=== PATIENT | male | born 1985 | race Caucasian/White ===

== ENCOUNTER 2022-11-18 09:55 | Outpatient (AMB) | payer OTHER, SELFPAY ==
[2022-11-18 10:12] VITALS: BP 122/80; PULSE 71; O2SAT 99; BMI 22.8
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
== END 2022-11-18 10:45 | disposition home or self-care (01) ==
PROVIDERS: PCP Family Medicine; Visit Provider Family Medicine
DX: R10.9 Unspecified abdominal pain (principal); K92.1 Melena; F41.8 Other specified anxiety disorders; Z86.19 Personal history of other infectious and parasitic diseases; F43.10 Post-traumatic stress disorder, unspecified; R53.83 Other fatigue; Z11.1 Encounter for screening for respiratory tuberculosis; Z78.9 Other specified health status
CPT/HCPCS: 99203